=== PATIENT | male | born 1975 | race Caucasian/White ===

== ENCOUNTER 2022-12-19 12:27 | Emergency (ER) | payer BC ==
[2022-12-19 12:44] VITALS: TEMP 98.2
--- NOTE | 2022-12-19 13:23 | ERPHSYRPT ---
- History of Present Illness Historian: patient, other () Exam Limitations: no limitations Patient Subjective Stated Complaint: pt states that when he woke a couple of days ago his throat would hurt when he swallowed as if he took a large drink and it was having trouble going down, als states that he is having some burning when he swallows in his chest Triage Nursing Assessment: Pt brought to the ER by his , hypertensive, rates pain as 3/10, pain in throat and chest when he swallows, denies N&V, feels like heartburn when swallowing, pulses normal, no difficulty breathing, doesn't appear to be in any distress Physician History: 47 yo WM w burning sensation in his chest when swallowing x 2 days. He denies N/V/dyspnea/diaphoresis. Pt has HTN but denies DM/hyperlipidemia/tobacco use. Pain is 4/10 and increases to 5/10 when swallowing. Timing/Duration: other (2 days) Activities at Onset: none Quality: burning Location: substernal Chest Pain Radiation: no radiation Severity of Pain-Max: moderate Severity of Pain-Current: mild Modifying Factors: Improves With: eating Associated Symptoms: denies symptoms Prior Chest Pain/Cardiac Workup: no prior chest pain Nitro Today/Relief: no nitro taken today Aspirin Treatment Today: no aspirin today Allergies/Adverse Reactions: Sulfa (Sulfonamide Antibiotics) Allergy (Verified 12/19/22 12:44) Home Medications: Amlodipine Besylate [Norvasc] 10 mg PO DAILY 12/19/22 [History] Losartan/Hydrochlorothiazide [Losartan-Hctz 100-25 mg Tab] 1 tab PO DAILY 12/19/22 [History] Metoprolol Succinate 50 mg [Toprol Xl 50 MG] 50 mg PO DAILY 12/19/22 [History] Hx Influenza Vaccination/Date Given: No Hx Pneumococcal Vaccination/Date Given: No Travel Risk - International Travel Have you traveled outside of the country in past 3 weeks: No - Coronavirus Screening Are you exhibiting any of the following symptoms?: No Close contact with a COVID-19 positive Pt in past 14-21 Days: No - Vaccine Status Have you recieved a Covid-19 vaccination: No - Review of Systems Constitutional: No Symptoms Eyes: No Symptoms Ears, Nose, & Throat: No Symptoms Respiratory: No Symptoms Abdominal/Gastrointestinal: No Symptoms Genitourinary Symptoms: No Symptoms Musculoskeletal: No Symptoms Skin: No Symptoms Neurological: No Symptoms Psychological: No Symptoms Endocrine: No Symptoms Hematologic/Lymphatic: No Symptoms Immunological/Allergic: No Symptoms - Past Medical History Pertinent Past Medical History: Yes Cardiac History: Hypertension - Past Surgical History Past Surgical History: No - Social History Smoking Status: Former smoker Exposure to second hand smoke: No Drug Use: none Patient Lives Alone: No - Nursing Vital Signs Nursing Vital Signs: Initial Vital Signs Temperature 98.2 F 12/19/22 12:34 Pulse Rate 73 12/19/22 12:34 Blood Pressure 170/93 12/19/22 12:34 O2 Sat by Pulse Oximetry 96 12/19/22 12:34 Pain Scale Pain Intensity 3 Hypertension - Physical Exam General Appearance: no apparent distress Eye Exam: PERRL/EOMI, eyes nml inspection Ears, Nose, Throat Exam: normal ENT inspection, TMs normal, pharynx normal, moist mucous membranes Neck Exam: normal inspection, non-tender, supple, full range of motion, No meningismus, No mass, No Brudzinski, No Kernig's, No carotid bruit Respiratory Exam: normal breath sounds, lungs clear, airway intact Cardiovascular Exam: regular rate/rhythm, normal heart sounds, normal peripheral pulses, capillary refill <2 sec, No murmur Gastrointestinal/Abdomen Exam: soft, normal bowel sounds, No tenderness Back Exam: normal inspection, normal range of motion, No CVA tenderness, No vertebral tenderness Extremity Exam: normal inspection, normal range of motion Neurologic Exam: alert ( ), oriented x 3 ([id number]) SpO2: 96 - Course Nursing assessment & vital signs reviewed: Yes EKG Interpreted by Me: RATE (NSR/Rate 77/Normal QT-QTc/No acute ST changes/Tall T waves) - Radiology Exams Chest X-ray Interpretation: Reviewed by me (R mid-lung calcified granuloma) Ordered Tests: Active Orders 24 hr Category Date Time Status EKG-ER Only STAT Care 12/19/22 13:20 Completed IV Insertion STAT Care 12/19/22 14:05 Completed CHEST 1 VIEW (PORTABLE) Stat Exams 12/19/22 13:21 Completed CBC W DIFF Stat Lab 12/19/22 13:35 Completed CMP Stat Lab 12/19/22 13:35 Completed PROTIME WITH INR Stat Lab 12/19/22 13:35 Completed PTT Stat Lab 12/19/22 13:35 Completed TROPONIN Q4H Lab 12/19/22 13:35 Completed Medication Summary Discontinued Medications Generic Name Dose Route Start Last Admin Trade Name Prabhjot PRN Reason Stop Dose Admin Pantoprazole Sodium 40 mg 12/19/22 14:01 12/19/22 14:07 Pantoprazole 40 Mg Vial IV 12/19/22 14:02 40 mg STAT ONE Administration Pantoprazole Sodium Confirm 12/19/22 14:06 Pantoprazole 40 Mg Vial Administered 12/19/22 14:07 Dose 40 mg IV .[facility] ONE Lab/Rad Data: Laboratory Result Diagrams 12/19/22 13:35 12/19/22 13:35 Laboratory Results 12/19/22 12/19/22 12/19/22 Range/Units 13:35 13:35 13:35 WBC (4.0-10.5) x10^3/uL RBC (4.1-5.6) x10^6/uL Hgb (12.5-18.0) g/dL Hct (42-50) % MCV (78-100) fL MCH (26-32) pg MCHC (32-36) g/dL RDW (11.5-14.0) % Plt Count (150-450) x10^3/uL MPV (7.5-11.0) fL Gran % (36.0-66.0) % Immature Gran % (Auto) (0.00-0.4) % Nucleat RBC Rel Count (0.00-0.1) % Eos # (Auto) (0-0.5) x10^3/uL Immature Gran # (Auto) (0.00-0.03) x10^3u/L Absolute Lymphs (auto) (1.0-4.6) x10^3/uL Absolute Monos (auto) (0.0-1.3) x10^3/uL Absolute Nucleated RBC (0.00-0.01) x10^3u/L Lymphocytes % (24.0-44.0) % Monocytes % (0.0-12.0) % Eosinophils % (0.00-5.0) % Basophils % (0.0-0.4) % Absolute Granulocytes (1.4-6.9) x10^3/uL Basophils # (0-0.4) x10^3/uL PT 10.4 (9.4-12.5) SECONDS INR 0.95 (0.8-3.0) APTT 28.1 (25.1-36.5) SECONDS Sodium 138 (137-145) mmol/L Potassium 3.8 (3.5-5.1) mmol/L Chloride 100 (98-107) mmol/L Carbon Dioxide 27 (22-30) mmol/L Anion Gap 14.1 (5-15) MEQ/L BUN 15 (9-20) mg/dL Creatinine 0.78 (0.66-1.25) mg/dL Estimated GFR > 60.0 ML/MIN Glucose 120 H (74-106) mg/dL Calcium 9.1 (8.4-10.2) mg/dL Total Bilirubin 1.00 (0.2-1.3) mg/dL AST 59 (17-59) U/L ALT 65 H (0-50) U/L Alkaline Phosphatase 152 H (38-126) U/L Troponin I < 0.012 (0.000-0.034) ng/mL Serum Total Protein 8.2 (6.3-8.2) g/dL Albumin 4.9 (3.5-5.0) g/dL 12/19/22 Range/Units 13:35 WBC 11.0 H (4.0-10.5) x10^3/uL RBC 5.59 (4.1-5.6) x10^6/uL Hgb 18.4 H (12.5-18.0) g/dL Hct 52.1 H (42-50) % MCV 93.2 (78-100) fL MCH 32.9 H (26-32) pg MCHC 35.3 (32-36) g/dL RDW 11.5 (11.5-14.0) % Plt Count 137 L (150-450) x10^3/uL MPV 12.7 H (7.5-11.0) fL Gran % 80.0 H (36.0-66.0) % Immature Gran % (Auto) 0.2 (0.00-0.4) % Nucleat RBC Rel Count 0.0 (0.00-0.1) % Eos # (Auto) 0.06 (0-0.5) x10^3/uL Immature Gran # (Auto) 0.02 (0.00-0.03) x10^3u/L Absolute Lymphs (auto) 1.08 (1.0-4.6) x10^3/uL Absolute Monos (auto) 0.99 (0.0-1.3) x10^3/uL Absolute Nucleated RBC 0.00 (0.00-0.01) x10^3u/L Lymphocytes % 9.8 L (24.0-44.0) % Monocytes % 9.0 (0.0-12.0) % Eosinophils % 0.5 (0.00-5.0) % Basophils % 0.5 (0.0-0.4) % Absolute Granulocytes 8.81 H (1.4-6.9) x10^3/uL Basophils # 0.05 (0-0.4) x10^3/uL PT (9.4-12.5) SECONDS INR (0.8-3.0) APTT (25.1-36.5) SECONDS Sodium (137-145) mmol/L Potassium (3.5-5.1) mmol/L Chloride (98-107) mmol/L Carbon Dioxide (22-30) mmol/L Anion Gap (5-15) MEQ/L BUN (9-20) mg/dL Creatinine (0.66-1.25) mg/dL Estimated GFR ML/MIN Glucose (74-106) mg/dL Calcium (8.4-10.2) mg/dL Total Bilirubin (0.2-1.3) mg/dL AST (17-59) U/L ALT (0-50) U/L Alkaline Phosphatase (38-126) U/L Troponin I (0.000-0.034) ng/mL Serum Total Protein (6.3-8.2) g/dL Albumin (3.5-5.0) g/dL - Progress Progress: improved Progress Note: 12/19/22 15:34 Nursing note and vital signs reviewed No food or housing insecurities noted 40mg IV Protonix All lab results reviewed and shared w pt/ Additional history per Heart score 2 Counseled pt/family regarding: lab results, diagnosis, need for follow-up, rad results Medical Desision Making - Independent Historian Additional History obtained from: Spouse - Risk of complications The pt has a mod risk of morbidity or mortality based on: Need for prescription drug management - Departure Departure Disposition: Home Clinical Impression: GERD (gastroesophageal reflux disease) Condition: Stable Critical Care Time: No Referrals: MORRO GABRIEL MD [Primary Care Provider] - Follow up/PCP as directed Instructions: Acid Reflux and GERD in Adults (DC) Additional Instructions: Follow up with your family MD Return to ER for increasing pain or shortness of breath Start Protonix(May substitute Prilosec, Prevacid, or Nexium) Prescriptions: PANTOPRAZOLE 40 mg Tablet [Protonix 40MG Tablet] 40 mg PO QAM #30 tab
[2022-12-19 13:39] LABS: Absolute Neutrophil Ct (ANC) 8.81 x10^3/uL (1.4-6.9); BASOPHIL % 0.5 % (0.0-0.4); Basophil (Absolute #) 0.05 x10^3/uL (0-0.4); Eosinophil % 0.5 % (0.00-5.0); Eosinophil (Absolute #) 0.06 x10^3/uL (0-0.5); Hematocrit 52.1 % (42-50); Hemoglobin 18.4 g/dL (12.5-18.0); IMMATURE GRAN # 0.02 x10^3u/L (0.00-0.03); IMMATURE GRAN % 0.2 % (0.00-0.4); Lymphocyte (Absolute #) 1.08 x10^3/uL (1.0-4.6); Lymphocytes % 9.8 % (24.0-44.0); Mean Cell Volume 93.2 fL (78-100); Mean Corpuscular Hemoglobin 32.9 pg (26-32); Mean Corpuscular Hgb Concent. 35.3 g/dL (32-36); Mean Platelet Volume 12.7 fL (7.5-11.0); Monocyte (Absolute #) 0.99 x10^3/uL (0.0-1.3); Platelet Count 137 x10^3/uL (150-450); Red Blood Count 5.59 x10^6/uL (4.1-5.6); Red Cell Distribution Width 11.5 % (11.5-14.0)
[2022-12-19 13:52] LABS: ALBUMIN 4.9 g/dL (3.5-5.0); ALKALINE PHOSPHATASE 152 U/L (38-126); ANION GAP 14.1 MEQ/L (5-15); BLOOD UREA NITROGEN 15 mg/dL (9-20); CHLORIDE 100 mmol/L (98-107); Calcium 9.1 mg/dL (8.4-10.2); Carbon Dioxide 27 mmol/L (22-30); Creatinine 1 0.78 mg/dL (0.66-1.25); EST GLOMERULAR FILTRATION RATE > 60.0 ML/MIN; Glucose 120 mg/dL (74-106); Potassium 3.8 mmol/L (3.5-5.1); SGOT/AST 59 U/L (17-59); SGPT/ALT 65 U/L (0-50); SODIUM 138 mmol/L (137-145); Total Protein 8.2 g/dL (6.3-8.2)
[2022-12-19 13:53] LABS: INR 0.95 (0.8-3.0); PROTIME 10.4 SECONDS (9.4-12.5); PTT 28.1 SECONDS (25.1-36.5)
[2022-12-19 14:00] VITALS: RESP 18
[2022-12-19] MEDS ORDERED: PROTONIX 40 MG IV IV ONE ×2 (14:01→14:06)
--- NOTE | 2022-12-19 14:08 | XRAY ---
Indication: Chest pain. Comparison: None Portable chest demonstrates normal heart, lungs, and bony thorax with incidental right mid lung calcified granuloma.
[2022-12-19 14:28] VITALS: BP 143/84; PULSE 81
[2022-12-19 14:48] VITALS: O2SAT 96
== END 2022-12-19 14:56 | disposition home or self-care (01) ==
LOC: ED 12:27
DX: K21.9 Gastro-esophageal reflux disease without esophagitis (principal); R07.9 Chest pain, unspecified; I10 Essential (primary) hypertension; Z79.899 Other long term (current) drug therapy; Z28.310 Unvaccinated for COVID-19
CPT/HCPCS: 36000; 36415; 71045; 80053; 84484; 85025; 85610; 85730; 93005; 96374; 99284